=== PATIENT | female | born 1955 | race Caucasian/White ===

== ENCOUNTER 2025-05-11 16:47 | Emergency (ER) | payer MEDICARE ==
[~2025-05-11] VITALS: Ht 165.1 cm; Wt 106.8 kg
[2025-05-11 16:56] VITALS: TEMP 97.3
[2025-05-11 17:51] LABS: BASO # 0.1 10^3/uL (0.0-0.2); BASO % 0.7 % (0.0-1.0); EOS # 0.4 10^3/uL (0.0-0.5); EOS % 3.8 % (0.0-3.0); LYMPH # 3.4 10^3/uL (1.5-5.0); LYMPH % 36.4 % (24.0-44.0); MONO # 0.6 10^3/uL (0.0-0.8); MONO % 6.9 % (2.0-8.0); NEUTROPHILS # 4.8 10^3/uL (1.5-8.5); NEUTROPHILS % 51.8 % (36.0-66.0); PLATELET COUNT, AUTOMATED 183 10^3/uL (150-450)
[2025-05-11 18:10] LABS: ALT/SGPT 46.0 U/L (7.0-40); AST/SGOT 39.0 U/L (<34); CALCIUM LEVEL 9.3 MG/DL (8.3-10.6); CARBON DIOXIDE LEVEL 26.0 MMOL/L (20-31); CHLORIDE LEVEL 106.0 MMOL/L (98-107); CREATININE FOR GFR 1.03 MG/DL (0.55-1.30); GLOMERULAR FILTRATION RATE 58.1 (>39); POTASSIUM SERUM 5.2 MMOL/L (3.5-5.1); SODIUM LEVEL 140.0 MMOL/L (136-145)
[2025-05-11] MEDS ORDERED: VITAD1000T PO (20:01)
[2025-05-11] MEDS ORDERED: RA M10TA PO (20:01)
[2025-05-11] MEDS ORDERED: CARD40TA PO (20:01)
[2025-05-11] MEDS ORDERED: JARD1TAB3 PO (20:01)
[2025-05-11] MEDS ORDERED: INSU100V6 SQ (20:01)
[2025-05-11] MEDS ORDERED: BUPR-766 PO (20:01)
[2025-05-11] MEDS ORDERED: GLIP10TA PO (20:01)
[2025-05-11] MEDS ORDERED: AMIO200T54 PO (20:01)
[2025-05-11] MEDS ORDERED: ASPI81TA26 PO (20:01)
[2025-05-11] MEDS ORDERED: TRIA1OI TOP (20:01)
[2025-05-11] MEDS ORDERED: LEVOTAB10 PO (20:01)
[2025-05-11] MEDS ORDERED: ELIQ5TAB PO (20:01)
[2025-05-11] MEDS ORDERED: VENL150C43 PO (20:01)
[2025-05-11] MEDS ORDERED: METO100T5 PO (20:01)
[2025-05-11] MEDS ORDERED: MULT-40 PO (20:01)
[2025-05-11] MEDS ORDERED: PANT40TA29 PO (20:01)
[2025-05-11] MEDS ORDERED: VASC1CAP2 PO (20:01)
[2025-05-11] MEDS ORDERED: LANTINJ4 SC (20:01)
[2025-05-11] MEDS ORDERED: ROSU20TA86 PO (20:01)
[2025-05-11] MEDS ORDERED: METF-838 PO (20:01)
[2025-05-11] MEDS ORDERED: VITA1TAB82 PO (20:01)
[2025-05-11] MEDS ORDERED: HOME MED LIST COMPLETE! XX SCH (20:05)
[2025-05-11 21:47] VITALS: O2SAT 97
[2025-05-11 21:49] VITALS: BP 111/72
== END 2025-05-11 22:05 | disposition home or self-care (01) ==
LOC: M ED 16:47
DX: R74.01 Elevation of levels of liver transaminase levels (principal); R53.83 Other fatigue; I48.92 Unspecified atrial flutter; I48.91 Unspecified atrial fibrillation; E11.9 Type 2 diabetes mellitus without complications; I10 Essential (primary) hypertension; E78.5 Hyperlipidemia, unspecified; K58.9 Irritable bowel syndrome, unspecified; G47.33 Obstructive sleep apnea (adult) (pediatric); E28.2 Polycystic ovarian syndrome; Z79.01 Long term (current) use of anticoagulants; Z79.1 Long term (current) use of non-steroidal anti-inflammatories (NSAID); Z79.4 Long term (current) use of insulin; Z79.84 Long term (current) use of oral hypoglycemic drugs; Z79.899 Other long term (current) drug therapy; Z79.810 Long term (current) use of selective estrogen receptor modulators (SERMs)